=== PATIENT | male | born 1980 | race Caucasian/White ===

== ENCOUNTER 2024-04-27 13:49 | Emergency (ER) | payer SELFPAY ==
[2024-04-27 13:52] VITALS: BP 125/75
--- NOTE | 2024-04-27 14:37 | ED.GENMED ---
History of Present Illness
<Vi Crawley PA-C - Last Filed: 04/27/24 17:58>
General
Chief Complaint: DVT/Possible Blood Clot
Source: patient
Exam Limitations: none
Time Seen by Provider: 04/27/24 14:04
Nursing documentation reviewed up to this point in time: agreed with
History of Present Illness
History of Present Illness:
Patient is a 44-year-old male with history of DVT presenting to the emergency department from living facility for evaluation of swelling and mild pain of right lower extremity. Patient states he initially started to notice swelling a few days ago
and noted some pain in his right lower leg yesterday. Patient denies any numbness/tingling in right lower extremity. Patient denies any known trauma or inciting event. Patient denies any chest pain or shortness of breath.
Patient did have a spontaneous DVT of his right lower extremity in February 2023. He was taking Eliquis 5 mg once a day for about a year but discontinued the medication in February. He is unsure if he was supposed to discontinue the medication or should
still be taking the medication. Patient does note a chronic discoloration of his right foot which has been present for about 1 year�seem to appear around the time of his first DVT diagnosis.
Patient has no known clotting disorders.
Review of Systems
<Vi Crawley PA-C - Last Filed: 04/27/24 17:58>
Review of Systems
Allergies reviewed?: Yes
All Other Systems: ROS reviewed and negative except as documented in HPI and ROS
Phy Exam
<Vi Crawley PA-C - Last Filed: 04/27/24 17:58>
Physical Exam
Physical Exam:
Vitals: Patient's vital signs are stable. Afebrile
General: Patient is well appearing, no acute distress
Skin: Warm and dry, no rashes or lesions
Head: Normocephalic, atraumatic
Throat: Protecting airway
Neck: Normal ROM, no cervical spine tenderness
Cardiac: Regular rate
Pulm: No apparent respiratory distress
Abdomen: Nondistended
Extremities: Mild nonpitting edema of right lower extremity from right ankle to right knee. Very mild tenderness to right calf. Negative Homans' sign in right lower extremity. Patient has excellent sensation and palpable DP and PT pulses of right
lower extremity. No bony tenderness of right lower extremity. Full range of motion right lower extremity.
Neuro: Grossly intact
Psychiatric: Normal affect.
Course
<Vi Crawley PA-C - Last Filed: 04/27/24 17:58>
Orders/Labs/Results
Orders:
Orders
04/27/24 14:33
US Legs, Right [US Periph Venous LOWER Ext RT] Urgent
Comment: hx of DVT in RLE
Reason For Exam: pain and swelling RLE
Vital Signs
Initial and Last Documented VS:
Initial Vital Signs
Temp Pulse Resp BP Pulse Ox
97.5 F 91 17 125/75 97
04/27/24 13:52 04/27/24 13:52 04/27/24 13:52 04/27/24 13:52 04/27/24 13:52
Last Documented Vital Signs
Temp Pulse Resp BP Pulse Ox
97.5 F 91 17 125/75 97
04/27/24 13:52 04/27/24 13:52 04/27/24 13:52 04/27/24 13:52 04/27/24 13:52
<David Banegas DO - Last Filed: 04/27/24 16:16>
Orders/Labs/Results
Orders:
Orders
04/27/24 14:33
US Legs, Right [US Periph Venous LOWER Ext RT] Urgent
Comment: hx of DVT in RLE
Reason For Exam: pain and swelling RLE
Vital Signs
Initial and Last Documented VS:
Initial Vital Signs
Temp Pulse Resp BP Pulse Ox
97.5 F 91 17 125/75 97
04/27/24 13:52 04/27/24 13:52 04/27/24 13:52 04/27/24 13:52 04/27/24 13:52
Last Documented Vital Signs
Temp Pulse Resp BP Pulse Ox
97.5 F 91 17 125/75 97
04/27/24 13:52 04/27/24 13:52 04/27/24 13:52 04/27/24 13:52 04/27/24 13:52
<Vi Crawley PA-C - Last Filed: 04/27/24 17:58>
MDM/Problems Addressed
Differential Diagnosis Includes:
Not limited to: DVT, muscle strain, contusion, Wells's cyst, dependent edema, lymphedema, etc.
MDM/Problems Addressed:
Patient is a 44-year-old male with history as documented presenting with mild swelling and tenderness of right lower extremity worsening over the past few days. Patient does have a history of spontaneous DVT occurring about 14 months ago for which
she was taking Eliquis daily. Patient did recently discontinue Eliquis in February. Patient concern for possible DVT. No known trauma or injury. No chest pain, shortness of breath, or fevers. Vital stable. Physical exam as above. Patient does
have very mild nonpitting edema of right ankle. No overlying erythema, warmth or any signs of infectious process of right lower extremity. Very mild tenderness to right calf with palpation. Patient has great blood flow to right lower extremity
excellent sensation. A vascular ultrasound was performed of the right lower extremity which shows no evidence of DVT. Suspect likely venous insufficiency. Will refer patient to hematology for further management of anticoagulation and if it should
be continued given history of spontaneous DVT. Return precautions discussed at length.
Chronic conditions affecting care:
History of DVT
Acute Exacerbation and/or Progression of Chronic Illness:
N/A
<Vi Crawley PA-C - Last Filed: 09/16/24 17:58>
*Radiology
Radiology exam reviewed: radiology read reviewed
*Pulse Oximetry
Patient hypoxic: no
*EKG
Interpreted by ED Provider?: NA
*Hospital Admissions Clerk Interpretation
Rate: Hospital Admissions Clerk- N/A
*Critical Care Note
Total Time (30-74mins, 75-104mins- exclusive of procedures): Not Applicable
ED Attending Note
<Vi Crawley PA-C - Last Filed: 04/27/24 17:58>
-
Portions of this chart may have been created with voice recognition software.� Occasional wrong word or��sound alike� substitutions may have occurred due to the inherent limitations of voice recognition software.
<David Banegas DO - Last Filed: 04/27/24 16:16>
ED Attending Note
Patient seen and examined by attending physician: Yes
I performed the substantive portion of visit, reviewed & personally made and approve the management plan that is documented in note by myself or JOSUÉ.: Yes
ED Attending Note:
Patient is a 44-year-old male who was diagnosed with unprovoked DVT approximately 14 months ago and presents with chronic swelling of the right lower extremity. Patient has stopped his Eliquis in February. Patient has not had hematology follow-up.
Patient denies chest pain or shortness of breath. Patient denies fever or chills. Physical exam patient is not in any distress. Patient's leg is minimally edematous. Patient has good blood flow. Ultrasound is unremarkable. Patient referred to
hematology for follow-up. Swelling has not dramatically increased at any point since being off of Eliquis. Probably more due to chronic venous insufficiency.
Discharge Plan
Departure
Patient Disposition: Home (Routine Discharge)
Date of Disposition: 04/27/24
Time of Disposition: 16:12
Patient with high blood pressure during this ER visit?: No
Condition: Good
Covid-19: Not Applicable
Discharge Problem:
Swelling of right lower extremity
Instructions: Swelling
Referrals:
Nathalia Pollard MD [Active] - Next open appointment
Activity Restrictions/Additional Instructions:
RETURN TO THE EMERGENCY DEPARTMENT WITH ANY FEVERS, CHILLS SIGNIFICANT WORSENING IN PAIN OR SWELLING OF RIGHT LOWER EXTREMITY, NUMBNESS/TINGLING IN RIGHT LOWER EXTREMELY, CHEST PAIN, SHORTNESS OF BREATH, WORSENING IN CURRENT SYMPTOMS, OR ANY OTHER
CONCERNS
-As discussed your ultrasound showed no evidence of a blood clot in your right lower leg extremity today. You should keep leg elevated, wear compression stockings if able.
-Follow-up with hematology for further management and to determine whether you should continue your Eliquis.
Monitor symptoms closely and return to the emergency department with any acute worsening/new symptoms
Interventions
Interventions:
*Risk Screen - Suicide Last Done: 04/27/24 13:52
*General Assessment Last Done: 04/27/24 16:19
*Nursing Disposition Last Done: 04/27/24 16:19
ED-Skin Assessment Last Done: 04/27/24 14:58
Discharge Date and Time
Discharge Date/Time: 04/27/24 16:20
Print Language: FRISIAN
== END 2024-04-27 16:20 | disposition home or self-care (01) ==
LOC: EMR 13:49
PROVIDERS: EMERGENCY PHYSICIAN Emergency Medicine
DX: R22.41 Localized swelling, mass and lump, right lower limb (principal); M79.661 Pain in right lower leg
CPT/HCPCS: 99284; 93971